=== PATIENT | male | born 1955 | race Caucasian/White ===

== ENCOUNTER 2019-09-02 08:58 | Day surgery (SDC) | payer OTHER, SELFPAY ==
[2019-08-30 13:33] VITALS: BMI 45.4
--- NOTE | 2019-08-30 15:58 | RAD_ITS ---
STUDY: X-RAY CHEST REASON FOR EXAM: Male, 64 years old. Preop TECHNIQUE: PA and lateral COMPARISON: None. FINDINGS: There is discoid atelectasis in left lower lobe.. There is no demonstrated pleural abnormality. Normal size heart. Normal mediastinum and colette. Normal visualized pulmonary arteries. Normal visualized aortic arch and descending thoracic aorta. Dorsal spine demonstrates moderate spondylosis. Normal visualized ribs, clavicles, and shoulders. There is no demonstrated abnormality of the visualized soft tissue structures of the upper abdomen. RAD/Chest PA and Lateral IMPRESSION: Mild discoid atelectasis in left lower lobe. Electronically Signed: Derick Tinajero MD at 21:44 EDT , Service support ,
[2019-08-30 16:37] LABS: Absolute Lymphocyte Count 2.99 X10^3/uL (0.83-4.51); Basophil# 0.05 X10^3/uL; Basophil% 0.5 % (0-1); Eosinophil# 0.16 X10^3/uL; Eosinophils% 1.6 % (0-5); Hematocrit 44.4 % (40-54); Hemoglobin 14.9 g/dL (13.0-16.5); Lymphocyte # 2.99 X10^3/ul (4.0); Lymphocyte % 29.6 % (19-41); Mean Corp Hgb Conc 33.6 g/dL (32-36); Mean Corpuscular Hgb 32.6 pg (27.0-32.0); Mean Corpuscular Volume 97.2 fL (80-94); Mean Platelet Vol. 10.1 fl (6.2-12.0); Monocyte# 0.83 X10^3/uL; Monocyte% 8.2 % (0-10); NRBC Flagged by Analyzer 0 % (0-5); Neutrophil # 6.04 X10^3/uL (2.7-7.7); Neutrophil % 59.8 % (47-70); Platelet Count 192 K/mm3 (150-450); RBC Distribution Width SD 45.9 fl (35.1-43.9); Red Blood Count 4.57 M/mm3 (4.6-6.2); White Blood Count 10.1 K/mm3 (4.4-11.0)
[2019-08-30 16:46] LABS: International Normalized Ratio 1.1; Prothrombin Time (Protime)PT. 13.5 SECONDS (11.7-14.9)
[2019-08-30 16:58] LABS: Anion Gap 4 (5-15); BUN 17 mg/dL (7-18); BUN/Creat Ratio 23.4 RATIO (10-20); Calcium,Total 9.1 mg/dL (8.5-10.1); Chloride 107 mmol/L (98-107); Creatinine, Serum 0.73 mg/dL (0.70-1.30); EST Glomerular Filtration Rate 116 mL/min (>60); Est Glom Filt Rate - Afr Amer 141 mL/min (>60); Glucose 96 mg/dL (74-106); Sodium Level 141 mmol/L (136-145)
[2019-09-01 09:00] VITALS: BMI 45.4
--- NOTE | 2019-09-02 11:57 | CL.D_ITS ---
Patient Name: COLIN PRATT Study Date: 09/02/2019 Performing: Edilberto Leyva MD Ht: 66.92 inches 170 cm : 1955 Wt: 291.01 lbs 132 kg Age: 64 Gender: male BSA: 2.37 PROCEDURE(S) PERFORMED [id number] CLINICAL PROFILE AND INDICATIONS Indications: Suspected CAD Heart Failure: None Stress/Imaging Stress/Image Study Performed: No CAD Presentations: Unstable angina. CONCLUSIONS Multivessel CAD as described. Severe LV systolic dysfunction. No significant . Mild MR RECOMMENDATIONS Surgery consult for coronary revascularization DESCRIPTION OF PROCEDURE The patient arrived to the procedure lab. The risks and benefits of the procedure as well as a full d escription of our services here and current unavailability of surgical backup were fully explained to the patient and/or their significant other prior to the catheterization. The Timeout was completed, verifying the correct patient and procedure. The patient's procedural site was prepped and draped in the usual fashion. Local anesthetic was given subcutaneously to right radial region with Lidocaine 2% . Using a modified Seldinger technique, arterial access was obtained via the right radial artery, a 6 Fr sheath was inserted. Left Coronary Artery selective angiography was performed in multiple views u sing a 5 Fr. JL3.5 catheter. LV to AO pullback pressures were then recorded. Left Ventriculography wa s performed in TANG projection using a 5 Fr. JR4. Right Coronary Artery selective angiography was then performed in multiple views using a 5 Fr. JR 4 catheter.The arterial sheath was pulled and a TR Band was applied for hemostasis. 10cc Air CORONARY ANGIOGRAPHY DOMINANCE: Right Dominant LEFT HEART ASSESSMENT Left Ventricular Ejection Fraction: by LV Gram 30 % Anterior Hypokinesis - Severe. Apical Hypokinesis - Severe. Inferior Apical Hypokinesis - Severe LEFT MAIN: Mild luminal irregularities LEFT ANTERIOR DESCENDING ARTERY: PROX LAD: 99 % Stenosis CIRCUMFLEX ARTERY: PROX CIRC: 70 % Stenosis MID CIRC: 80 % Stenosis RIGHT CORONARY ARTERY: MID RCA: 90 % Stenosis DISTAL RCA: 100 % Stenosis VALVE FINDINGS: No Aortic Valve Stenosis Mitral Valve Insufficiency - Grade 1 COMPLICATIONS No Complications PROCEDURE MEDICATIONS Fentanyl 50 mcg IV Versed 1 mg IV Oxygen: 2 L/min via nasal cannula Heparin given IA 09/02/2019 10:46:16 Verapamil 2.5mg, Ntg 100mcgs, 3000 units of Heparin given IA 09/02/2019 10:46:16 IV Bolus: .9 NaCl 200 ml total 09/02/2019 10:51:30 SUMMARY OF HEMODYNAMIC DATA Time AIR REST ECG 09:35:17 ECG 09:37:25 ECG 10:32:34 LV 99/3, 25 10:50:27 LV 91/3, 28 10:50:35 LVp 92/4, 21 10:50:47 AOp 85/49 (64) 10:50:52 AO 76/48 (62) SA 10:51:16 Signed By Edilberto Leyva MD On 09/02/2019 11:57:01 AM Edilberto Leyva MD
[2019-09-02 13:30] VITALS: BP 107/61; PULSE 84; RESP 17; TEMP 36.9; O2SAT 98
[2019-09-02 13:47] VITALS: PULSE 81
[2019-09-02 15:16] VITALS: BMI 45.5
[2019-09-02 17:04] VITALS: BP 97/52; PULSE 62; RESP 16; TEMP 37; O2SAT 95
[2019-09-02 18:57] VITALS: PULSE 97
== END 2019-09-02 19:43 | disposition short-term general hospital (02) ==
LOC: CLSP 08:59 → PCU 13:55
PROVIDERS: Family Provider Family Medicine; PCP Family Medicine; Referring Provider Specialist; Visit Provider Specialist
DX: I25.110 Atherosclerotic heart disease of native coronary artery with unstable angina pectoris (principal); I34.0 Nonrheumatic mitral (valve) insufficiency; G47.33 Obstructive sleep apnea (adult) (pediatric); K21.9 Gastro-esophageal reflux disease without esophagitis; M10.9 Gout, unspecified; K42.9 Umbilical hernia without obstruction or gangrene; Z95.1 Presence of aortocoronary bypass graft; R94.31 Abnormal electrocardiogram [ECG] [EKG]; R07.9 Chest pain, unspecified; R60.9 Edema, unspecified
CPT/HCPCS: 36415; 71046; 80048; 85025; 85610; 85730; 93458; 99152; 99153; J7040; Q9967; C1769; C1894

== ENCOUNTER → 2020-01-13 10:52 | Outpatient (CLI) | payer OTHER, SELFPAY ==
[2019-10-06 11:00] VITALS: BMI 45.1
--- NOTE | 2020-01-13 10:52 | ECHOD_ITS ---
Reason For Study: LV Dysfunction Procedure This was a 2D Doppler, Color Flow transthoracic echocardiogram. The study was technically difficult. Contrast injection was performed. Exam performed in department. Left Ventricle Normal LV size. The estimated ejection fraction is 40 %. Stage 1 diastolic dysfunction. [place] : Hypokinetic. Anterior [place] : Hypokinetic. Right Ventricle Normal RV size. Normal systolic function. Atria Normal left atrium. Normal right atrium. No doppler evidence for ASD. Mitral Valve There is no mitral valve stenosis. No mitral valve insufficiency. Tricuspid Valve There is no tricuspid stenosis. Trivial tricuspid valve insufficiency. Unable to estimate RV systolic pressure due to insufficient tricuspid regurgitant envelope. Aortic Valve There is no aortic stenosis. No aortic valve insufficiency. Pulmonic Valve There is no pulmonic valvular stenosis. No pulmonic valve insufficiency. Great Vessels Normal aortic root. Pericardium/Pleural No pericardial effusion. Medication 22 gauge I.V. with prn adaptor inserted into left arm. Diluted definity 2ml given slow IV push to enhance endocardial definition. MMode/2D Measurements & Calculations LVIDd: 5.5 cm IVSd: 1.1 cm LA dimension: 4.3 cm LVIDs: 4.3 cm LVPWd: 1.5 cm FS: 22.1 % LAV(MOD-bp): 77.2 ml LA A4 area: 23.5 cm2 RA A4 area: 19.7 cm2 LAV(MOD-bp) Indexed: 33.3 ml/m2 LAV(MOD-sp2): 79.5 ml LAV(MOD-sp4): 72.7 ml Time Measurements MV dec time: 0.26 sec Doppler Measurements & Calculations MV E max rishabh: 88.3 cm/sec Lat Peak E' Rishabh: 4.3 cm/sec Med Peak E' Rishabh: 4.1 cm/sec MV A max rishabh: 38.8 cm/sec E/E' lat: 20.7 E/E' med: 21.4 MV E/A: 2.3 MV V2 max: 91.9 cm/sec MV P1/2t max rishabh: 92.5 cm/sec Ao V2 max: 102.7 cm/sec MV max P.4 mmHg MV P1/2t: 164.0 msec Ao max P.2 mmHg MV V2 mean: 45.6 cm/sec MV dec slope: 165.3 cm/sec2 MV mean P.0 mmHg MV V2 VTI: 34.9 cm MVA(P1/2t): 1.3 cm2 LV V1 max: 97.7 cm/sec PA V2 max: 92.5 cm/sec LV V1 max P.8 mmHg Interpretation Summary The estimated ejection fraction is 40 %. Stage 1 diastolic dysfunction. [place] : Hypokinetic. Anterior [place] : Hypokinetic Ordering Physician: Everett Leyva Referring Physician: Everett Leyva Performed By: Eder Pace RCS
== END ==
PROVIDERS: PCP Family Medicine; Referring Provider Specialist; Visit Provider Specialist
DX: I51.9 Heart disease, unspecified (principal); I25.10 Atherosclerotic heart disease of native coronary artery without angina pectoris; I21.4 Non-ST elevation (NSTEMI) myocardial infarction; Z95.1 Presence of aortocoronary bypass graft
CPT/HCPCS: 93306; Q9957; A4216; C8929

== ENCOUNTER → 2022-10-21 | Outpatient (CLI) | payer OTHER, SELFPAY ==
--- NOTE | 2022-10-21 16:27 | STRESSREP ---
Stress Test Report Pharmacologic myocardial perfusion stress test. 67-year-old man with a history of coronary artery disease Resting EKG demonstrates sinus bradycardia with a rate of 46 bpm. Resting blood pressure is 128/60 mmHg. 0.4 mg of regadenoson was infused per usual protocol followed by rapid intravenous saline flush injection. Continuous EKG monitoring was performed. The maximum heart rate was 71 bpm which was 45% of max impacted heart rate the maximum workload was 1 metabolic equivalent. At rest there were no ST or T wave changes noted to suggest ischemia and at peak infusion nonspecific ST changes were noted with did not meet the criteria for ischemia. Occasional premature ventricular complexes noted. No clinical angina is noted. The final blood pressure was 114/58 mmHg. Myocardial perfusion protocol. 15 mCi of technetium 99m sestamibi was injected at rest. 0.4 mg of regadenoson was infused per usual protocol. At peak infusion 45 mCi of technetium 99m sestamibi was injected stress images were obtained stress and rest images were reconstructed and compared in the short axis vertical long and horizontal long axis. Gated images were also obtained. Perfusion SPECT analysis: Review of the stress images demonstrate a perfusion defect noted involving the anterior wall and apex. The rest of the adams appear to be normal the resting images demonstrate a similar pattern with reduced perfusion in the anterior wall and apex suggesting a previous anterior apical infarct. No significant ischemia is noted. Gated SPECT analysis: The gated ejection fraction is 47%. Conclusion: Pharmacologic myocardial perfusion stress test with evidence of previous anterior apical infarct with no ischemia noted. Reduced ejection fraction
== END | disposition home or self-care (01) ==
PROVIDERS: PCP Family Medicine; Referring Provider Internal Medicine Cardiovascular Disease; Visit Provider Internal Medicine Cardiovascular Disease
DX: I25.10 Atherosclerotic heart disease of native coronary artery without angina pectoris (principal); Z95.1 Presence of aortocoronary bypass graft
CPT/HCPCS: 78452; 93017; A9500; A4216; J2785

== ENCOUNTER → 2023-08-05 | Outpatient (CLI) | payer OTHER, SELFPAY ==
--- NOTE | 2023-08-05 13:45 | ECHOCS_ITS ---
Reason For Study: ISCH CMP Procedure This was a 2D Doppler, Color Flow transthoracic echocardiogram. The study was technically difficult. Contrast injection was performed. Exam performed in department. Left Ventricle Normal LV size. The estimated ejection fraction is 45 %. Mild to moderate segmental systolic dysfunction (see wall motion). Stage 3 diastolic dysfunction. [place] : Akinetic. Mid-anteroseptal : Hypokinetic. Mid-Anterior : Hypokinetic. The rest of the wall segments are normal. Right Ventricle Normal RV size. Normal systolic function. Atria The left atrium is mildly enlarged. Normal right atrium. Mitral Valve Normal mitral valve. Tricuspid Valve Normal tricuspid valve. Aortic Valve The aortic valve is not well visualized. Pulmonic Valve The pulmonic valve is not well visualized. Great Vessels Normal aortic root. The pulmonary artery is normal size. Normal inferior vena cava. Pericardium/Pleural No pericardial effusion. Medication 22 gauge I.V. with prn adaptor inserted into left arm. Diluted definity 1.5ml given slow IV push to enhance endocardial definition. MMode/2D Measurements & Calculations LVIDd: 5.4 cm IVSd: 1.2 cm Ao root diam: 3.7 cm LVIDs: 4.1 cm LVPWd: 1.0 cm FS: 23.9 % LAV(MOD-bp): 62.2 ml LVAd ap4: 49.0 cm2 SV(MOD-sp4): 87.2 ml LAV(MOD-bp) Indexed: 26.3 ml/m2 LVLd ap4: 9.4 cm LAV(MOD-sp2): 48.6 ml EDV(MOD-sp4): 210.7 ml LAV(MOD-sp4): 72.4 ml EDV(sp4-el): 217.5 ml LVAs ap4: 35.4 cm2 LVLs ap4: 8.2 cm ESV(MOD-sp4): 123.5 ml ESV(sp4-el): 129.9 ml EF(MOD-sp4): 41.4 % EF(sp4-el): 40.3 % SV(sp4-el): 87.6 ml LA A4 area: 22.8 cm2 LA dimension(2D): 4.5 cm RA A4 area: 14.2 cm2 TAPSE: 1.1 cm Time Measurements MV dec time: 0.31 sec Doppler Measurements & Calculations MV E max rishabh: 64.1 cm/sec Lat Peak E' Rishabh: 10.2 cm/sec Med Peak E' Rishabh: 5.5 cm/sec MV A max rishabh: 27.1 cm/sec E/E' lat: 6.3 E/E' med: 11.7 MV E/A: 2.4 MV V2 max: 77.7 cm/sec MV dec slope: 223.2 cm/sec2 Ao V2 max: 104.4 cm/sec MV max P.4 mmHg Ao max P.4 mmHg MV V2 mean: 40.3 cm/sec Ao V2 mean: 78.1 cm/sec MV mean P.77 mmHg Ao mean P.7 mmHg MV V2 VTI: 30.1 cm Ao V2 VTI: 30.0 cm AV (velocity ratio): 0.72 LV V1 max: 81.4 cm/sec PA V2 max: 98.2 cm/sec LV V1 max P.7 mmHg PA V2 mean: 71.5 cm/sec LV V1 mean P.5 mmHg LV V1 mean: 58.0 cm/sec LV V1 VTI: 21.7 cm ECHO/Echo Complete W/ Contrast Interpretation Summary Normal LV size. The estimated ejection fraction is 45 %. Mild to moderate segmental systolic dysfunction (see wall motion). The left atrium is mildly enlarged. Stage 3 diastolic dysfunction. Contrast injection was performed. Compared to previous study, the left ventricu lar systolic function is the same.. Ordering Physician: Dee Hassan Referring Physician: Dee Hassan Performed By: Juliet Phillips RCS
== END | disposition home or self-care (01) ==
LOC: CVS 13:44
PROVIDERS: PCP Family Medicine; Referring Provider Nurse Practitioner Gerontology; Visit Provider Nurse Practitioner Gerontology
DX: I25.5 Ischemic cardiomyopathy (principal)
CPT/HCPCS: 93306; Q9957; A4216; C8929